=== PATIENT | female | born 1985 ===

== ENCOUNTER 2017-11-29 21:18 | Emergency (ER) | payer SELFPAY ==
[2017-11-29 21:29] VITALS: BP 135/91; PULSE 78; RESP 16; TEMP 97.9; O2SAT 100
--- NOTE | 2017-11-29 22:18 | ED PDOC ---
HPI: Female Pain Time Seen by Provider: 11/29/17 21:39 Chief Complaint (Nursing): Female Genitourinary Chief Complaint (Provider): dysuria History Per: Patient History/Exam Limitations: no limitations Onset/Duration Of Symptoms: Days (2) Current Symptoms Are (Timing): Still Present Quality Of Discomfort: Burning Additional History Per: Patient, Family Additional Complaint(s): 31 y/o female presents with dysuria x 3 days. Associated increased urine urgency/frequency. Denies fever, nausea/vomiting, abdominal pain, hematuria, vaginal bleeding/discharge. Past Medical History Reviewed: Historical Data, Nursing Documentation, Vital Signs Vital Signs: Last Vital Signs Temp 97.9 F 11/29/17 21:25 Pulse 78 11/29/17 21:25 Resp 16 11/29/17 21:25 BP 135/91 H 11/29/17 21:25 Pulse Ox 100 11/29/17 21:25 - Medical History PMH: No Chronic Diseases - Surgical History Surgical History: No Surg Hx - Family History Family History: States: No Known Family Hx - Home Medications Home Medications: Ambulatory Orders Medication Instructions Recorded Nitrofurantoin Macrocrystals 100 mg PO BID #13 cap 11/29/17 [Macrobid] Phenazopyridine HCl [Pyridium] 100 mg PO TID PRN #5 tab 11/29/17 - Allergies Allergies/Adverse Reactions: Allergies Allergy/AdvReac Type Severity Reaction Status Date / Time No Known Allergies Allergy Verified 11/29/17 21:25 Review of Systems ROS Statement: Except As Marked, All Systems Reviewed And Found Negative Genitourinary Female: Positive for: Dysuria, Frequency Physical Exam - Reviewed Nursing Documentation Reviewed: Yes Vital Signs Reviewed: Yes - Physical Exam Appears: Positive for: Well, Non-toxic, No Acute Distress Head Exam: Positive for: ATRAUMATIC, NORMAL INSPECTION, NORMOCEPHALIC Skin: Positive for: Normal Color Eye Exam: Positive for: Normal appearance ENT: Positive for: Normal ENT Inspection Cardiovascular/Chest: Positive for: Regular Rate, Rhythm Respiratory: Positive for: Normal Breath Sounds Gastrointestinal/Abdominal: Positive for: Normal Exam Back: Positive for: Normal Inspection. Negative for: L CVA Tenderness, R CVA Tenderness Extremity: Positive for: Normal ROM Neurologic/Psych: Positive for: Alert, Oriented - ECG O2 Sat by Pulse Oximetry: 100 - Progress ED Course And Treament: urine Patient educated on findings, discharged with rx Macrobid, Pyridium (doses given in ED) Advised follow up PMD 2-3 days. Return precautions given. Disposition - Clinical Impression Clinical Impression: Urinary tract infection - Patient ED Disposition Is Patient to be Admitted: No Counseled Patient/Family Regarding: Studies Performed, Diagnosis, Need For Followup, Rx Given - Disposition Referrals: [facility] [place] [facility] [Outside] Disposition: Routine/Home Disposition Time: 22:59 Condition: STABLE Prescriptions: Nitrofurantoin Macrocrystals [Macrobid] 100 mg PO BID #13 cap Phenazopyridine HCl [Pyridium] 100 mg PO TID PRN #5 tab PRN Reason: Urinary Discomt Instructions: Urinary Tract Infection, Adult (DC) Forms: WeGreek (Omani) Print Language: ANGOLAN
[2017-11-29 22:54] LABS: SQUAMOUS EPITHIAL 1 /hpf (0-5); URINE BILIRUBIN NEGATIVE (NEGATIVE); URINE BLOOD MODERATE (NEGATIVE); URINE CLARITY CLOUDY (Clear); URINE COLOR YELLOW (YELLOW); URINE GLUCOSE (UA) NEG (Normal); URINE LEUKOCYTE ESTERASE LARGE Leu/uL (Negative); URINE NITRATE NEGATIVE (NEGATIVE); URINE PROTEIN 30 mg/dL (NEGATIVE)
== END 2017-11-29 23:10 | disposition home or self-care (01) ==
LOC: H.ER 21:18
DX: N39.0 Urinary tract infection, site not specified (principal)